=== PATIENT | male | born 1960 | race Caucasian/White ===

== ENCOUNTER 2024-08-26 20:39 | Observation (INO) | payer OTHER ==
[~2024-08-26] VITALS: Ht 177.8 cm; Wt 75.3 kg
[2024-08-26] MEDS ORDERED: PRILOSEC OTC20 MG PO (20:56)
[2024-08-26 21:20] LABS: BASOPHILS 0.6 % (0-2); EOSINOPHILS 1.4 % (0-6); HEMATOCRIT 39.5 % (35.0-50.0); HEMOGLOBIN 13.6 g/dL (12.0-18.0); LYMPHOCYTES 15.4 % (24-44); MCHC 34.4 g/dl (30-36); MCV 92.9 fl (81-99); MONOCYTES 6.3 % (0-12); NEUTROPHILS 76.3 % (39-80); PLATELET COUNT 191 K/uL (140-440); RBC 4.25 M/ul (4.3-5.7); RDW 12.8 (10.5-15.0)
[2024-08-26 21:29] LABS: PARTIAL THROMBOPLASTIN TIME 26.6 Sec (22.9-41.3)
[2024-08-26 21:30] LABS: INR 0.96 (0.80-1.30); PROTIME 12.1 Sec (11.2-14.2)
[2024-08-26 21:39] LABS: ALBUMIN 3.8 g/dL (3.4-5.0); ALBUMIN/GLOBULIN RATIO 1.09 (1.1-2.4); ANION GAP 10.9 (7-21); BILIRUBIN, TOTAL 0.3 ng/dL (0.2-1.0); BUN/CREATININE RATIO 11.86 (6.0-28.6); CALCIUM 8.7 mg/dL (8.5-10.1); CREATININE, SERUM 1.18 mg/dL (0.70-1.30); MAGNESIUM 2.1 mg/dL (1.8-2.4); POTASSIUM 3.9 mmol/L (3.5-5.1); PROTEIN, TOTAL 7.3 g/dL (6.4-8.2)
[2024-08-26 22:25] LABS: BILIRUBIN, URINE NEGATIVE (negative); BLOOD/HGB, URINE NEGATIVE (Negative); KETONE, URINE NEGATIVE (Negative); LEUK ESTERASE, URINE NEGATIVE (negative); NITRITE, URINE NEGATIVE (negative)
[2024-08-26] MEDS ORDERED: FAMOTIDINE 20 MG/ 2 ML VIAL IV SCH (22:44)
[2024-08-26] MEDS ORDERED: LACTATED RINGER'S 1,000 ML IV SCH (22:45)
[2024-08-26] MEDS ORDERED: KETOROLAC TROMETHAMINE 30 MG/ML VIAL IV PRN (22:45)
[2024-08-26] MEDS ORDERED: ondansetron HCL 4 MG/2 ML VIAL IV PRN (22:45)
[2024-08-26 23:45] VITALS: BP 151/68
--- NOTE | 2024-08-26 23:55 | NUR ---
PATIENT TO FLOOR VIA WHEELCHAIR BY METAL MOLDER. PATIENT TRANSFERRED FROM WHEELCHAIR TO BED INDEPENDENTLY. VS AND BED WEIGHT OBTAINED AND RECORDED. SECURITY INCIDENT RESPONSE ENGINEER IN ROOM TO COMPLETE ADMISSION.
[2024-08-27] VITALS (11 sets, daily range): BP systolic 99–124; BP diastolic 41–67
--- NOTE | 2024-08-27 00:51 | NUR ---
ASSESSMENT COMPLETE. HERNIA NOTED ON LEFT GROIN/TESTICLE. DENIES PAIN. PATIENT STATES THAT HE IS 5 MONTHS SOBER FROM [facility] AND TURNED HIMSELF INTO [facility] 3 MONTHS AGO SO THAT HE COULD GET CLEAN. PATIENT HIS CURRENTLY HOMELESS. PATIENT STATES HIS GIRLFRIEND ACTIVELY USES [facility] AND HE IS TRYING TO KEEP HIS DISTANCE FROM HER. PATIENT WANTS TO TALK TO CASE MANAGEMENT. CM CONSULT PLACED. PATIENT STATES HE WOULD ALSO BE WILLING TO TALK TO [facility] AND WANTS HELP FINDING HOUSING, DRUG REHAB, AND FINDING A JOB. IV FLUID INFUSING PER ORDER. IV FLUSHES WNL. PATIENT EDUCATED TO ROOM AND CALL LIGHT. NO FURTHER NEEDS AT THIS TIME. CALL LIGHT IN REACH.
--- NOTE | 2024-08-27 02:11 | NUR ---
PATIENT RESTING IN BED. DENIES NEEDS AT THIS TIME. CALL LIGHT IN REACH.
[2024-08-27] MEDS ORDERED: ACETAMINOPHEN 500 MG TAB PO SCH (06:00)
--- NOTE | 2024-08-27 06:26 | NUR ---
CALL LIGHT ANSWERED. PATIENT WITH COMPLAINTS OF IV PAIN. THIS RN TO ROOM. LEFT AC IV INFILTRATED. L AC IV DCd WNL WITH TIP INTACT. THIS RN ATTEMPTED 2 IVs. ISABEL RN TO ROOM. ISABEL PLACED IV IN R AC ON FIRST TRY. IV FLUID INFUSING PER ORDER. NO FURTHER NEEDS. CALL LIGHT IN REACH.
--- NOTE | 2024-08-27 07:10 | NUR ---
RECIEVED BEDSIDE REPORT FROM LESLY HOLBROOK. PT WAS RESTING WITH EYES CLOSED, BUT DID WAKE WHEN RN WAS AT BEDSIDE. NO NEEDS AT THIS TIME. IV FLUIDS RUNNING AT 85ML/HR.
--- NOTE | 2024-08-27 10:00 | NUR ---
MED REC COMPLETE
--- NOTE | 2024-08-27 10:33 | NUR ---
CHECKED ON PT. HE IS LAYING IN BED, DENIES PAIN OR DISCOMFORT. WARM BLANKET GIVEN.
--- NOTE | 2024-08-27 11:15 | NUR ---
VISITED DURING SPIRITUAL CARE ROUNDS. PT APPEARED TO BE SLEEPING. DID NOT DISTURB. PROVIDED PRAYER.
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
--- NOTE | 2024-08-27 11:40 | NUR ---
UR CLINICAL REVIEW: [facility]: MEETS OBSERVATION CRITERIA FOR HERNIA REPAIR. GL DAY 1 VARIANCE ENTERED DUE TO SURGICAL INTERVENTION NEEDED UNABLE TO COMPLETE UNTIL LATER TODAY. DMAP (STATE MEDICAID) OBS 08/26/24 @ 8960 ORDER MATCHES REG AWAITING REQUEST FOR CLINICALS FOR AUTH. PLAN TO DC HOME WHEN STABLE 08/28/24
[2024-08-27] MEDS ORDERED: propofoL 200 MG/20 ML VIAL ONE (11:52)
[2024-08-27] MEDS ORDERED: MIDAZOLAM HCL 2 MG/2 ML VIAL ONE (11:52)
[2024-08-27] MEDS ORDERED: ondansetron HCL 4 MG/2 ML VIAL ONE (11:52)
[2024-08-27] MEDS ORDERED: DEXAMETHASONE SOD PHOS 4 MG/ML VIAL ONE (11:52)
[2024-08-27] MEDS ORDERED: fentaNYL citrate 100 MCG/2 ML VIAL ONE (11:52)
[2024-08-27] MEDS ORDERED: LACTATED RINGER'S 1,000 ML IV ONE (11:52)
[2024-08-27] MEDS ORDERED: METOCLOPRAMIDE HCL 10 MG/2 ML SDV ONE (11:52)
[2024-08-27] MEDS ORDERED: FAMOTIDINE 20 MG/ 2 ML VIAL ONE (11:52)
[2024-08-27] MEDS ORDERED: KETOROLAC TROMETHAMINE 30 MG/ML VIAL ONE (11:52)
--- NOTE | 2024-08-27 12:39 | NUR ---
PT IS RESTING IN BED WITH EYES CLOSED. PT HAS HAD PRE-PROCEDURE SHOWER AND WIPEDOWN. N0 NEEDS AT THIS TIME.
[2024-08-27] MEDS ORDERED: CEFAZOLIN SODIUM 2 GM/20 ML SYR IV SCH (14:30)
[2024-08-27] MEDS ORDERED: BUPIVACAINE HCL 0.25% 50 ML MDV ONE (14:46)
--- NOTE | 2024-08-27 15:06 | NUR ---
Notified by admitting pt qualified for OHP. I was able to look on FB and find his brother and his phone number. Phone number given to Stef to call if he likes.
[2024-08-27] MEDS ORDERED: SUCCINYLCHOLINE IN 0.9% NACL 200 MG/10 ML SYRINGE ONE (15:22)
[2024-08-27] MEDS ORDERED: SUGAMMADEX SODIUM 200 MG/2 ML ML ONE (15:22)
[2024-08-27] MEDS ORDERED: LIDOCAINE HCL 4% 5 ML AMP ONE (15:22)
[2024-08-27] MEDS ORDERED: ROCURONIUM BROMIDE 50 MG/5 ML SYR ONE (15:22)
[2024-08-27] MEDS ORDERED: KETAMINE in NS 50 MG/5 ML SYR ONE (15:24)
[2024-08-27] MEDS ORDERED: HEParin SOD (PORCINE) 5,000 UNIT/ML SDV ONE (15:28)
[2024-08-27] MEDS ORDERED: DIGOXIN 500 MCG/2 ML AMP ONE (15:41)
[2024-08-27] MEDS ORDERED: ATROPINE SULFATE 1 MG/ML VIAL ONE (15:46)
[2024-08-27] MEDS ORDERED: SEVOFLURANE 250 ML BTL ONE (15:46)
[2024-08-27] MEDS ORDERED: ACETAMINOPHEN 1,000 MG/100 ML VIAL ONE (15:54)
[2024-08-27] MEDS ORDERED: Ropivacaine HCl 0.5% 30 ML VIAL ONE (15:55)
[2024-08-27] MEDS ORDERED: SODIUM CHLORIDE 0.9% 40 ML IV ONE (15:55)
[2024-08-27] MEDS ORDERED: METOCLOPRAMIDE HCL 10 MG/2 ML SDV IV PRN (16:00)
[2024-08-27] MEDS ORDERED: NALOXONE HCL 0.4 MG SYR IV PRN ×2 (16:00)
[2024-08-27] MEDS ORDERED: MEPERIDINE HCL 25 MG/1 ML VIAL IV PRN (16:00)
[2024-08-27] MEDS ORDERED: droPERidol 5 MG/2 ML VIAL IV PRN (16:00)
[2024-08-27] MEDS ORDERED: fentaNYL citrate 50 MCG/ML SDV IV PRN (16:00)
[2024-08-27] MEDS ORDERED: IBLOOD GLUCOSE TEST STRIP 1 EA TEST VI PRN ×2 (16:00)
[2024-08-27] MEDS ORDERED: PROCHLORPERAZINE EDISYLATE 10 MG/2 ML VIAL IV PRN (16:00)
[2024-08-27] MEDS ORDERED: ondansetron HCL 4 MG/2 ML VIAL IV PRN (16:00)
--- NOTE | 2024-08-27 16:04 | NUR ---
PATIENT TOOK A SHOWER AT NOON THAN HE DID THE SURGICAL WIPE DOWN. HE ALSO WASHED HIS HAIR.
[2024-08-27] MEDS ORDERED: PHENYLEPHRINE HCL 10 MG/ML VIAL ONE (17:13)
--- NOTE | 2024-08-27 18:04 | NUR ---
08/27/24 1804 Padmini Anderson [id number]-[id number] ARRIVES TO PACU ON 10L VIA MASK. PT IS NONAROUSABLE WITH OPA IN PLACE. RESP EVEN AND UNLABORED.
--- NOTE | 2024-08-27 18:55 | NUR ---
PT ARRIVED BACK TO FLOOR WITH IV FLUIDS HANGING. PACU REPORTED 1500ML IN, 50 EBL. DRESSING ON L GROIN IS CLEAN, DRY, INTACT WITH SUTURES UNDERNEATH. PT REPORTED URGE TO VOID IN PACU, BUT WAS UNABLE TO USE URINAL. DID NOT REPORT NEED TO VOID IN ROOM. PT IS ASKING FOR MULTIPLE PEOPLE TO BE LET INTO HIS ROOM, BUT THERE IS NO ONE HERE.
--- NOTE | 2024-08-27 19:10 | NUR ---
SHIFT REPORT RECEIVED FROM KEVIN RN, PT ALERT, BUT DISORIENTENED TO PLACE AND TIME, DESIRES TO VOID, 2PA TO STAND AT BEDSIDE, VOIDED 275ML YELLOW URINE, BACK TO BED, DENIES PAIN, LLQ DRESSING DRY AND INTACT, IV SITE PATENT, PT BACK TO BED, PT REQUESTING FOOD, SIDE RAILS UP X 4, BED ALARM ON, PT RESTING QUIETLY.
--- NOTE | 2024-08-27 19:45 | NUR ---
PT AWAKE AND ALERT, ABLE TO CORRECTLY STATE HE IS IN [place] AT THE HOSPITAL, ASKING NURSE FOR SANDWICH, DISCUSSED NEED TO START WITH WATER AND JUICE TO SEE HOW HE TOLERATED, LLQ DRESSING WITH SMALL AMOUNT SANG DRAINAGE APPROXIMATELY "DIME" SIZE, PT DENIES PAIN UNLESS HE COUGHS, IVF STARTED AT 85ML/HR PER RIGHT AC SITE, SITE INTACT, LR STARTED AT 85ML/HR, PT ASKING IF ANYONE LIVES NEAR [facility] OR [place], STATES HE IS LOOKING FOR A RIDE TONIGHT, DISCUSSED NEED TO STAY AT HOSPITAL UNTIL DR ALICEA DISCHARGES HIM, PT AGREES TO STAY, BED ALARM ON, CALL LIGHT IN REACH, SR UP X 4, PT TOLERATING APPLE JUICE AND WATER, HOB ELEVATED 31 DEGREES.
--- NOTE | 2024-08-27 20:35 | NUR ---
CALL LIGHT ANSWERED, PT STOOD ON EDGE OF BED AND VOIDED 300MLS YELLOW URINE VIA URINAL, BACK IN BED. pt ASKING FOR SANDWHICH OR ICE CREAM, PER PRIMARY RN, OKAY TO GIVE ICE CREAM. VANILLA ICECREAM PROVIDED AND SCD'S BACK IN PLACE. BED ALARM RESUMED AND WARM BLANKET ALSO PROVIDED.
--- NOTE | 2024-08-27 22:40 | NUR ---
PT RESTING, ASSESSMENT COMPLETED, PT VOIDED 300ML YELLOW URINE, CONTINUES TO ASK FOR FOOD, PT DENIES N/V, PT STATES HE IS ABOUT READY TO WALK TO [facility] TO GET SOME FOOD, PLAN TO GIVEN PT ADDITIONAL FOOD.
--- NOTE | 2024-08-27 22:55 | NUR ---
PUDDINGS X 2 GIVEN AND A BOTTLE OF MILK PER REQUEST, IV PATENT, PT MORE CHEERFUL, VOIDED 450ML YELLOW URINE.
--- NOTE | 2024-08-27 23:40 | NUR ---
PT REMAINS AWAKE, DENIES PAIN, EATING ICE CREAM, RT TYLENOL GIVEN PER ORDER TO KEEP PT COMFORTABLE, PT WATCHING TV, WITHOUT OTHER REQUESTS.
[2024-08-28] VITALS (7 sets, daily range): BP systolic 99–126; BP diastolic 41–71
--- NOTE | 2024-08-28 00:05 | NUR ---
CALL LIGHT ANSWERED. PT NEEDED TO HAVE ABM. NON FERROUS MATERIAL HANDLER ASSISTED PT TO BATHROOM WITH FWW. PT GAIT STEADY. PT VOIDED AND WAS ASSISTED BAKC TO BED. SANDWICH BOX GIVEN. PT SITTING AT EDGE OF BED TO EAT. CALL LIGHT WITHIN REACH AND BED ALARM ON.
--- NOTE | 2024-08-28 00:10 | NUR ---
PT NOW BACK IN BED AFTER EATING SANDWICH BOX. SCDS RECONNECTED. PT STATES NO FURTHER NEEDS AT THIS TIME. CALL LIGHT WITHIN REACH AND BED ALARM ON.
--- NOTE | 2024-08-28 01:33 | NUR ---
CALL LIGHT ANSWERED. PT NEEDED TO USE BATHROOM. PRESSER AND BLOCKER [employer] SBA TO BATHROOM. PT VOIDED AND HAD BM. PT ASSISTED BACK TO BED. PRESSER AND BLOCKER [employer] OBTAINED VITALS AND I&O. PRESSER AND BLOCKER [employer] GAVE PT AN ICE CREAM UPON PT REQUEST. PT STATES NO FURTHER NEEDS AT THIS TIME. CALL LIGHT WITHIN REACH.
--- NOTE | 2024-08-28 01:50 | NUR ---
PT REMAINS AWAKE, CHEERFUL WITHOUT COMPLAINTS OF PAIN, IV PATENT, RESTING IN BED, DRESSING OVER SURGICAL SITE APPROX 1/3 SATUATED WITH SANG DRAINAGE, NO LEAKAGE NOTED OUT FROM UNDER DRESSING, PT WATCHING TV.
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
[2024-08-28 05:11] LABS: BASOPHILS 0.2 % (0-2); EOSINOPHILS 0.3 % (0-6); LYMPHOCYTES 5.2 % (24-44); MCH 32.4 (27-36); MCHC 35.3 g/dl (30-36); MCV 91.6 fl (81-99); MONOCYTES 6.5 % (0-12); NEUTROPHILS 87.8 % (39-80); PLATELET COUNT 170 K/uL (140-440); RBC 3.71 M/ul (4.3-5.7); RDW 13.1 (10.5-15.0)
[2024-08-28 05:20] LABS: ANION GAP 10.2 (7-21); BUN/CREATININE RATIO 11.76 (6.0-28.6); CALCIUM 8.5 mg/dL (8.5-10.1); CREATININE, SERUM 1.36 mg/dL (0.70-1.30); POTASSIUM 4.2 mmol/L (3.5-5.1)
--- NOTE | 2024-08-28 06:33 | NUR ---
PT AWAKE AND ALERT, STATES HE NEEDS TO GO TO [facility] TO HAVE A BM, PT STATES HE HAS BEEN PASSING GAS TONIGHT, GAIT STEADY, 1PA.
--- NOTE | 2024-08-28 06:40 | NUR ---
PT BACK TO BED, PT REPORTS HE HAD A SMALL STOOL, PT FLUSHED BEFORE NURSE WAS ABLE TO CHECK, PT BACK TO BED, IV PATENT, RT TYLENOL.
--- NOTE | 2024-08-28 09:58 | NUR ---
PT MEDS GIVEN THIS MORNING, NEW IV BAG HUNG. PT REFUSING THE PEPCID THIS MORNING, STATES EVERYTIME WE GIVE IT HE GETS UPSET STOMACH. PT DID EAT ALL HIS BREAKFAST THIS MORNING, DENIES NAUSEA. REPORTS PAIN 2/10. DRESSING TO (L) GROIN HAS BLOOD PRESENT THROGHOUT DRESSING, HAS ABD REINFORCED AT THIS TIME, AWAITING MD EVALUATION AND WILL CHANGE AT THAT TIME PER MD DISCRETION. PT SITTING UP IN THE CHAIR, CALL LIGHT WITHIN REACH, DENIES ANY FURTHER NEEDS AT THIS TIME.
--- NOTE | 2024-08-28 10:49 | NUR ---
PATIENT SET UP IN HIS CHAIR FOR BREAKFAST. WASHED HIS FACE AND BRUSHED HIS TEETH. BED LINENS CHANGED.
[2024-08-28] MEDS ORDERED: ACETAMINOPHEN500 MG PO (13:22)
[2024-08-28] MEDS ORDERED: MOTRIN IB200 MG PO (13:23)
--- NOTE | 2024-08-28 13:43 | NUR ---
IV IS OUT. PATIENT GETTING DRESSED.
--- NOTE | 2024-09-02 11:35 | OR ---
[facility] [address], [place] [address] Signed DATE OF OPERATION: 08/27/2024 SURGEON: Naya Alicea MD PREOPERATIVE DIAGNOSIS: Incarcerated left inguinal hernia (colon). POSTOPERATIVE DIAGNOSIS: Incarcerated left inguinal hernia, colon, indirect sliding type. PROCEDURE: Repair of sliding left inguinal hernia including reduction of hernia and hernia sac and Bassini repair (two-layer interrupted 2-0 silk). MOTOR OVERHAULER: Arnav Alicea MD ANESTHESIA: General endotracheal, Naya Wilson CRNA, and local 10 mL of 0.25% Marcaine with epinephrine and postoperative unilateral TAP block. INDICATIONS: This 63-year-old white man was in [facility] and began having severe pain in the left groin area with a large inguinal hernia. The hernia has been present for a number of years apparently. The pain was severe enough that the jailers brought him to the emergency room, dropped him off releasing him from [facility] to undergo medical care at the hospital. Evaluation by Dr. Pyle showed him to have a rather sizable left inguinal hernia, which was not fully reducible and quite uncomfortable. A CT scan was performed late last night, which confirmed the hernia to contain sigmoid colon and omentum without sign of obstruction or ischemic changes. The patient has been fluid resuscitated and now is to undergo hernia repair. He understands the risk of bleeding, infection, recurrence and wished to proceed. FINDINGS: Indeed the hernia was rather sizable with a chronically thickened and chronically inflamed hernia sac with adequate relaxation from paralysis that was able to be reduced fully. At operation, he was found to have a large indirect hernia sac that the lateral wall was completely fused to the sigmoid colon consistent with sliding-type hernia. Reduction of Electronically Signed By: NAYA ALICEA MD 09/02/24 1135 PATIENT NAME: JAIRO ARMSTRONG OPERATIVE REPORT DATE OF : 60 REPORT #: [id number] PHYSICIAN: NAYA ALICEA MD PCP: NO PRIMARY CARE PHYSICIAN REPORT IS CONFIDENTIAL AND NOT TO BE RELEASED WITHOUT AUTHORIZATION [facility] [address], [place] [address] Signed the colon and hernia sac wall was accomplished allowing for closure of the defect in the standard way for sliding repair. The floor itself surprisingly was not particularly attenuated. On this occasion, the repair was more appropriate to not include mesh. A Bassini type repair with 2-0 silk was undertaken in a two-layer technique. A relaxing incision was not required. Cord structures were preserved as was the left ilioinguinal nerve. DESCRIPTION OF PROCEDURE: The patient was brought to the operating room, given a general endotracheal anesthetic. Preoperative antibiotic Ancef has been given. Sequential compression device stockings were used. The abdomen was clipped and prepared with a chlorhexidine solution and draped sterilely. Reduction of the hernia with relaxation was accomplished fully. An incision was made over the left groin area cephalad to the pubic tubercle. Dissection was carried through the subcutaneous tissue with electrocautery including Johnny's layer. The external oblique was incised along its fibers revealing the underlying cord and ilioinguinal nerve densely to the cremasteric muscle fibers. This was dissected free and reflected medially around the external oblique out of harm's way. Using blunt and electrocautery dissection, the cord was freed from the inguinal canal and ultimately encircled with a [place] drain. With appropriate tension, circumferential transection of cremasteric muscle fiber around the cord was undertaken. This allowed for good assessment of the indirect sac, which is medial to the cord structures. With meticulous care, the sac was freed from the cord structures preserving the cord structures entirely. The hernia sac was elevated and incised and opened and found to have a fusion of the colon to the lateral sac wall and a brief attempted the colon from the hernia sac was attempted, however, true fusion was noted and therefore, this sliding hernia was best managed by simple reduction fully and redundant sac was secured with interrupted 2-0 Vicryl suture, reducing it fully. Consideration was made for appropriate definitive hernia repair. Although mesh would generally be used in this situation, and therefore it was not particularly attenuated. A Bassini repair was deemed most appropriate without the need for mesh. This was accomplished by securing the tendon of the transversus abdominis laterally to the shelving edge of Poupart's ligament with interrupted 2-0 silk suture. Given the confirmation of the findings, two or three lateral sutures were placed as well. Although, repair would likely be an adequate with what was done. A second layer was additionally applied again using 2-0 silk suture. Irrigation was undertaken and 10 mL of 0.25% Marcaine with epinephrine injected locally. Special care was taken to avoid entrapment of the ilioinguinal nerve. Vickie hemostatic agent was applied to the wound particular in the region of the transected cremasteric muscle fiber. External oblique was reapproximated with running 2-0 Vicryl suture. Johnny's layer was reapproximated with interrupted 3-0 Vicryl and skin closed with running subcuticular 3-0 Vicryl. Steri-Strips were applied as was an Acticoat dressing. The patient tolerated the Electronically Signed By: NAYA ALICEA MD 09/02/24 1135 PATIENT NAME: JAIRO ARMSTRONG OPERATIVE REPORT DATE OF : 60 REPORT #: [id number] PHYSICIAN: NAYA ALICEA MD PCP: NO PRIMARY CARE PHYSICIAN REPORT IS CONFIDENTIAL AND NOT TO BE RELEASED WITHOUT AUTHORIZATION [facility] [address] [place], [place] [address] Signed procedure well, was ultimately extubated and transferred to the recovery room in good condition having suffered no complications. Sponge, needle, and instrument counts were reported as correct x3. MD FLAKITO Piedra/MODL /[id number] cc: Dr. Pyle [facility] Dr. Arnav Alicea Copies: ~ Electronically Signed By: NAYA ALICEA MD 09/02/24 1135 PATIENT NAME: JAIRO ARMSTRONG OPERATIVE REPORT DATE OF : 60 REPORT #: [id number] PHYSICIAN: NAYA ALICEA MD PCP: NO PRIMARY CARE PHYSICIAN REPORT IS CONFIDENTIAL AND NOT TO BE RELEASED WITHOUT AUTHORIZATION
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
== END 2024-08-28 13:55 | disposition home or self-care (01) ==
LOC: ED 20:39 → MS 20:40
PROVIDERS: Internal Medicine; Surgery; ADMIT Surgery; ATTEND Surgery
DX: K40.30 Unilateral inguinal hernia, with obstruction, without gangrene, not specified as recurrent (principal); Z88.5 Allergy status to narcotic agent; Z79.899 Other long term (current) drug therapy
CPT/HCPCS: 00830; 36415; 74177; 80048; 80053; 81003; 83735; 85025; 85610; 85730; 94762; 96376; 99285-25; A9270; G0378; J0131; J0330; J0461; J1100; J1160; J1644; J1885; J2250; J2371; J2405; J2704; J2765; J2795; J3010; J3490; J7121; Q9967